=== PATIENT | female | born 1980 | race Caucasian/White ===

== ENCOUNTER 2017-02-07 15:59 | Emergency (ER) | payer OTHER ==
[~2017-02-07] VITALS: Wt 68.0 kg
[~2017-02-07 15:59] MED LIST: ANAPROX DS550 MG PO; CIPROFLOXACIN500 MG PO; DARVOCET N 1001 TAB PO; MACROBID100 M1 PO
[2017-02-07] MEDS ORDERED: DEXTROAMPH SACC20 M1 PO (16:08)
[2017-02-07] MEDS ORDERED: NAPROSYN500 MG PO (16:13)
== END 2017-02-07 17:33 | disposition home or self-care (01) ==
LOC: ED 15:59
DX: S40.021A Contusion of right upper arm, initial encounter (principal); F17.200 Nicotine dependence, unspecified, uncomplicated; Z98.890 Other specified postprocedural states; Z88.5 Allergy status to narcotic agent; W18.09XA Striking against other object with subsequent fall, initial encounter; Y93.89 Activity, other specified; Y92.89 Other specified places as the place of occurrence of the external cause; Y99.9 Unspecified external cause status

== ENCOUNTER → 2018-02-15 | Day surgery (SDC) | payer OTHER ==
[~2018-02-15] VITALS: Ht 157.4 cm; Wt 65.8 kg
[~2018-02-15] MED LIST changes: +DEXTROAMPH SACC20 M1 PO; +NAPROSYN500 MG PO; +TRAMADOL HCL50 MG PO
[2018-02-15 11:50] VITALS: BP 99/57
[2018-02-15 12:03] VITALS: BP 98/62
[2018-02-15 12:16] VITALS: BP 105/69
== END | disposition home or self-care (01) ==
LOC: SDC 02-12 13:15
DX: L82.0 Inflamed seborrheic keratosis (principal); F17.210 Nicotine dependence, cigarettes, uncomplicated; Z98.890 Other specified postprocedural states

== ENCOUNTER 2018-05-30 23:26 | Emergency (ER) | payer OTHER ==
[~2018-05-30] VITALS: Ht 154.9 cm; Wt 65.8 kg
[2018-05-30] MEDS ORDERED: PENICILLIN VK500 MG PO (23:52)
== END 2018-05-31 00:19 | disposition home or self-care (01) ==
LOC: ED 23:26
DX: K02.9 Dental caries, unspecified (principal); K08.89 Other specified disorders of teeth and supporting structures; Z98.890 Other specified postprocedural states; Z88.5 Allergy status to narcotic agent

== ENCOUNTER → 2020-04-30 | Outpatient (CLI) | payer OTHER ==
[~2020-04-30] MED LIST changes: +PENICILLIN VK500 MG PO
== END | disposition home or self-care (01) ==
LOC: COVID19 00:04
DX: Z20.828 Contact with and (suspected) exposure to other viral communicable diseases (principal)

== ENCOUNTER 2021-06-12 12:38 | Emergency (ER) | payer OTHER ==
[~2021-06-12] VITALS: Ht 152.4 cm; Wt 68.0 kg
[2021-06-13 06:07] LABS: HEPATITIS B SURFACE AB Reactive (.)
== END 2021-06-12 15:31 | disposition home or self-care (01) ==
LOC: ED 12:38
PROVIDERS: Physician Assistant
DX: S61.233A Puncture wound without foreign body of left middle finger without damage to nail, initial encounter (principal); W27.3XXA Contact with needle (sewing), initial encounter; Y93.89 Activity, other specified; Y92.89 Other specified places as the place of occurrence of the external cause; Y99.8 Other external cause status

== ENCOUNTER 2022-01-14 19:09 | Emergency (ER) | payer OTHER ==
[2022-01-16 08:08] LABS: HEPATITIS B SURFACE AB Reactive (.)
== END 2022-01-15 01:45 | disposition home or self-care (01) ==
LOC: ED 19:09
PROVIDERS: Emergency Medicine
DX: S61.032A Puncture wound without foreign body of left thumb without damage to nail, initial encounter (principal); Z88.8 Allergy status to other drugs, medicaments and biological substances; Z98.890 Other specified postprocedural states; W27.3XXA Contact with needle (sewing), initial encounter; Y93.89 Activity, other specified; Y92.89 Other specified places as the place of occurrence of the external cause; Y99.8 Other external cause status

== ENCOUNTER → 2022-06-23 | Outpatient (CLI) | payer OTHER ==
[~2022-06-23] MED LIST changes: +CYCLOBENZAPRINE10 MG PO; +RELAFEN500 M1 PO
[2022-06-23 17:10] LABS: BASO # 0.1 10*3/uL (0.0-0.1); BASO % 0.5 % (0.0-1.0); EOS # 0.2 10*3/uL (0.0-0.4); EOS % 1.5 % (1.0-4.0); HEMATOCRIT 39.1 % (37.0-47.0); LYMPH # 4.5 10*3/uL (1.3-4.4); LYMPH % 36.8 % (27.0-41.0); MEAN CELL VOLUME 90.3 fl (81.0-99.0); MEAN CORPUSCULAR HGB 29.8 pg (27.0-31.0); MEAN PLATELET VOLUME 8.8 fl (9.6-12.3); MONO # 0.5 10*3/uL (0.1-1.0); MONO % 4.4 % (3.0-9.0); NEUT # 6.9 10*3/uL (2.3-7.9); NEUT % 56.6 % (47.0-73.0); PLATELET COUNT AUTOMATED 285 10*3/uL (130-400); RED BLOOD COUNT 4.33 10*6/uL (4.10-5.10); RED CELL DISTRI WIDTH 13.2 % (0-14.5); WHITE BLOOD COUNT 12.3 10*3/uL (4.8-10.8)
[2022-06-23 17:27] LABS: ALKALINE PHOSPHATASE 69 U/L (45-117); BUN 6 mg/dl (7-24); CHLORIDE 110 mmol/L (98-107); CHOLESTEROL 218 mg/dL (<200); CREATININE 0.59 mg/dL (0.55-1.02); POTASSIUM 3.6 mmol/L (3.5-5.1); SGOT/AST 16 IU/L (3-35); SGPT/ALT 29 U/L (12-78); SODIUM 141 mmol/L (136-145); TOTAL PROTEIN 7.2 gm/dL (6.4-8.2); TRIGLYCERIDES 203 mg/dl (<150)
[2022-06-23 17:29] LABS: FREE T4 0.89 ng/dl (0.76-1.46); LDL CHOLESTEROL 127 mg/dL (9-159)
== END | disposition home or self-care (01) ==
LOC: LAB 14:32
PROVIDERS: ATTEND Internal Medicine
DX: F32.1 Major depressive disorder, single episode, moderate (principal); F90.2 Attention-deficit hyperactivity disorder, combined type; E66.9 Obesity, unspecified

== ENCOUNTER 2022-06-30 22:12 | Emergency (ER) | payer OTHER ==
[~2022-06-30] VITALS: Ht 154.9 cm; Wt 72.6 kg
[~2022-06-30 22:12] MED LIST changes: -CYCLOBENZAPRINE10 MG PO; -RELAFEN500 M1 PO
[2022-07-01 00:19] LABS: BASO # 0.1 10*3/uL (0.0-0.1); BASO % 0.3 % (0.0-1.0); EOS # 0.2 10*3/uL (0.0-0.4); EOS % 1.6 % (1.0-4.0); HEMATOCRIT 37.9 % (37.0-47.0); LYMPH # 4.9 10*3/uL (1.3-4.4); LYMPH % 33.5 % (27.0-41.0); MEAN CELL VOLUME 89.6 fl (81.0-99.0); MEAN CORPUSCULAR HGB 30.5 pg (27.0-31.0); MEAN PLATELET VOLUME 8.9 fl (9.6-12.3); MONO % 6.9 % (3.0-9.0); NEUT # 8.5 10*3/uL (2.3-7.9); NEUT % 57.4 % (47.0-73.0); PLATELET COUNT AUTOMATED 263 10*3/uL (130-400); RED BLOOD COUNT 4.23 10*6/uL (4.10-5.10); RED CELL DISTRI WIDTH 13.3 % (0-14.5); WHITE BLOOD COUNT 14.7 10*3/uL (4.8-10.8)
[2022-07-01 00:35] LABS: ALKALINE PHOSPHATASE 65 U/L (45-117); BUN 16 mg/dl (7-24); CHLORIDE 111 mmol/L (98-107); CREATININE 0.69 mg/dL (0.55-1.02); LIPASE 128 U/L (73-393); POTASSIUM 3.9 mmol/L (3.5-5.1); SGOT/AST 23 IU/L (3-35); SGPT/ALT 37 U/L (12-78); SODIUM 141 mmol/L (136-145); TOTAL PROTEIN 7.2 gm/dL (6.4-8.2)
[2022-07-01 00:37] LABS: B-hCG (QUALITATIVE) NEGATIVE (NEGATIVE)
[2022-07-01 01:16] LABS: BILIRUBIN Negative (Negative); BLOOD Negative (Negative); CLARITY Clear (Clear); COLOR Yellow (Yellow); GLUCOSE Negative (Negative); KETONE Negative (Negative); LEUKO ESTERASE Negative (Negative); NITRITE Negative (Negative); SPECIFIC GRAVITY >= 1.030 (1.001-1.030)
[2022-07-01 01:24] LABS: BACTERIA 1+
[2022-07-01 01:25] LABS: EPITHELIAL CELLS 16-20; WBC 0-2 wbc/hpf (0-5)
[2022-07-01] MEDS ORDERED: CYCLOBENZAPRINE10 MG PO (02:20)
[2022-07-01] MEDS ORDERED: RELAFEN500 M1 PO (02:20)
== END 2022-07-01 02:42 | disposition home or self-care (01) ==
LOC: ED 22:12
PROVIDERS: Family Medicine
DX: M54.9 Dorsalgia, unspecified (principal); Z98.890 Other specified postprocedural states; Z88.6 Allergy status to analgesic agent

== ENCOUNTER 2022-09-14 13:18 | Emergency (ER) | payer OTHER ==
[~2022-09-14 13:18] MED LIST changes: +CYCLOBENZAPRINE10 MG PO; +RELAFEN500 M1 PO
[2022-09-14] MEDS ORDERED: ADDERALL 30 MG30 MG PO (14:33)
[2022-09-16 05:06] LABS: HEPATITIS B SURFACE AG Negative (Negative)
== END 2022-09-14 14:00 | disposition home or self-care (01) ==
LOC: ED 13:18
PROVIDERS: Physician Assistant
DX: S69.91XA Unspecified injury of right wrist, hand and finger(s), initial encounter (principal); Z88.5 Allergy status to narcotic agent; F10.90 Alcohol use, unspecified, uncomplicated; Z98.890 Other specified postprocedural states; W46.1XXA Contact with contaminated hypodermic needle, initial encounter; Y93.89 Activity, other specified; Y92.89 Other specified places as the place of occurrence of the external cause; Y99.8 Other external cause status